=== PATIENT | female | born 1995 | race Caucasian/White ===

== ENCOUNTER 2018-11-26 16:38 | Emergency (ER) | payer OTHER, SELFPAY ==
[2018-11-26 16:39] VITALS: BP 109/72; PULSE 59; RESP 14; TEMP 36.4; O2SAT 100; BMI 21.2
--- NOTE | 2018-11-26 16:54 | ED.VIS.UPPEX ---
History of Present Illness Chief Complaint: Upper Extremity Injury Informant: Patient Occurred: Today Mechanism/Context: Injury - Accidentally caught finger in the gait of a pickup truck while closing it Context: Sudden Onset Timing: Continuous Quality of Pain: Aching Location: right index finger Current Severity: Moderate Maximum Severity: Severe Worsened by: moving, palpation Relieved by: remaining still Associated Symptoms: Negative for: Parasthesia, Weakness, Loss of Funtion Narrative: RHD. Past Medical History - Allergies and Home Meds Allergies/Adverse Reactions: Allergies No Known Allergies Allergy (Verified 11/26/18 16:41) Past Medical History: None Surgical History: no surgical history Lives: Friends Smoking Status: Never smoker Review of Systems Musculoskeletal: Reports: Swelling, Extremity Pain Skin: Reports: Wounds - w/o bleeding Neurological: Denies: Weakness, Parasthesia, Numbness Physical Exam Vital Signs/Narrative: Vital Signs Temp Pulse Resp BP Pulse Ox 11/26/18 16:39 97.6 F L 59 L 14 109/72 100 Inital Vital Signs reviewed: Yes Right Finger: Contusion - dorsal middle phalanx, Limited ROM - w/r/t flexion due to swelling, but FDP and FDS intact. also intact extension. no subungual hematoma. no open wounds or bleeding.. Negative for: Deformity General: Well nourished, Well developed Head: Normocephalic, Atraumatic Skin: Normal color, Trauma - small contusion mid-finger right index Neurological: Alert, Oriented x3, Cranial nerves II-XII grossly intact, Normal Strength, Normal Sensation, Normal Gait Psychological: Normal affect Diagnostic/Tx/Re-eval Clinical Impression(s) from Imaging Studies Finger X-Ray 11/26/18 17:00 IMPRESSION: Normal x-ray examination of the finger. Electronically Signed: Logan Heath MD at 17:27 EDT , Service support , - Medical Decision Making X-rays are negative, patient is reassured and given instructions with regards of supportive care along with a dose of ibuprofen and an ice pack. ED Disposition - Plan for ED Patient: Disposition: Home or Assisted Living Diagnosis: Contusion of right index finger without damage to nail Instructions: ED Contusion Hand Referrals: Jose L Moseley MD [STAFF PHYSICIAN] - As Needed
--- NOTE | 2018-11-26 16:57 | ED.DCSUM_ITS ---
History of Present Illness Chief Complaint: Upper Extremity Injury Informant: Patient Occurred: Today Mechanism/Context: Injury - Accidentally caught finger in the gait of a pickup truck while closing it Context: Sudden Onset Timing: Continuous Quality of Pain: Aching Location: right index finger Current Severity: Moderate Maximum Severity: Severe Worsened by: moving, palpation Relieved by: remaining still Associated Symptoms: Negative for: Parasthesia, Weakness, Loss of Funtion Narrative: RHD. Past Medical History - Allergies and Home Meds Allergies/Adverse Reactions: Allergies No Known Allergies Allergy (Verified 11/26/18 16:41) Past Medical History: None Surgical History: no surgical history Lives: Friends Smoking Status: Never smoker Review of Systems Musculoskeletal: Reports: Swelling, Extremity Pain Skin: Reports: Wounds - w/o bleeding Neurological: Denies: Weakness, Parasthesia, Numbness Physical Exam Vital Signs/Narrative: Vital Signs Temp Pulse Resp BP Pulse Ox 11/26/18 16:39 97.6 F L 59 L 14 109/72 100 Inital Vital Signs reviewed: Yes Right Finger: Contusion - dorsal middle phalanx, Limited ROM - w/r/t flexion due to swelling, but FDP and FDS intact. also intact extension. no subungual hematoma. no open wounds or bleeding.. Negative for: Deformity General: Well nourished, Well developed Head: Normocephalic, Atraumatic Skin: Normal color, Trauma - small contusion mid-finger right index Neurological: Alert, Oriented x3, Cranial nerves II-XII grossly intact, Normal Strength, Normal Sensation, Normal Gait Psychological: Normal affect Diagnostic/Tx/Re-eval Clinical Impression(s) from Imaging Studies Finger X-Ray 11/26/18 17:00 IMPRESSION: Normal x-ray examination of the finger. Electronically Signed: Logan Heath MD at 17:27 EDT , Service support , - Medical Decision Making X-rays are negative, patient is reassured and given instructions with regards of supportive care along with a dose of ibuprofen and an ice pack. ED Disposition - Plan for ED Patient: Disposition: Home or Assisted Living Diagnosis: Contusion of right index finger without damage to nail Instructions: ED Contusion Hand Referrals: Jose L Moseley MD [STAFF PHYSICIAN] - As Needed
[2018-11-26] MEDS: Ibuprofen 600 MG Tablet PO (17:00)
--- NOTE | 2018-11-26 17:00 | RAD_ITS ---
STUDY: X-RAY - RIGHT HAND, ATTENTION SECOND FINGER REASON FOR EXAM: Female, 23 years old. Trauma TECHNIQUE: 3 view(s) of the finger were obtained. COMPARISON: None. FINDINGS: Normal metacarpal head. Normal metacarpophalangeal joint. Normal proximal phalanx. Normal middle phalanx. Normal distal phalanx. Normal proximal interphalangeal joint. Normal distal interphalangeal joint. RAD/Finger(s) Min 2 Views IMPRESSION: Normal x-ray examination of the finger. Electronically Signed: Loagn Heath MD at 17:27 EDT , Service support ,
== END 2018-11-26 18:10 | disposition home or self-care (01) ==
PROVIDERS: Emergency Provider Emergency Medicine
DX: S60.021A Contusion of right index finger without damage to nail, initial encounter (principal); W23.0XXA Caught, crushed, jammed, or pinched between moving objects, initial encounter; Y93.9 Activity, unspecified; Y92.812 Truck as the place of occurrence of the external cause; Y99.9 Unspecified external cause status
CPT/HCPCS: 73140; 99283